=== PATIENT | female | born 1940 | race Caucasian/White ===

== ENCOUNTER 2016-10-22 11:22 | Emergency (ER) | payer OTHER ==
[2016-10-22] MEDS ORDERED: SULFAMETH/TRIMETH DS 800/160 MG TABLET PO STA (13:52)
[2016-10-22] MEDS ORDERED: CEPHALEXIN 250 MG CAPSULE PO STA (13:52)
[2016-10-22] MEDS ORDERED: CEPHALEXIN 250 MG CAPSULE PO ONE (13:57)
[2016-10-22] MEDS ORDERED: SULFAMETH/TRIMETH DS 800/160 MG TABLET PO ONE (13:58)
--- NOTE | 2016-10-22 14:29 | ED Physician Documentation ---
PD HPI LOWER EXT INJURY - Stated complaint Stated Complaint: L LEG LAC - Chief complaint Chief Complaint: Ext Problem - History obtained from History obtained from: Patient - History of Present Illness PD HPI LOW EXT INJURY LOCATION: Left Type of injury: Laceration Where injury occurred: Home Timing - onset: How many days ago (4) Timing - duration: Days (4) Timing - details: Gradual onset Pain level max: 5 Pain level now: 4 Improved by: Rest Worsened by: Moving, Palpating Associated symptoms: Swelling, Discolored (erythematous). No: Weakness, Numbness, Tingling Review of Systems Constitutional: denies: Fever, Chills GI: denies: Nausea, Vomiting : denies: Now EGA Skin: denies: Rash Musculoskeletal: denies: Neck pain, Back pain Neurologic: denies: Focal weakness, Numbness, Headache PD PAST MEDICAL HISTORY - Past Medical History Past Medical History: Yes Cardiovascular: Hypertension GI: GERD : Other - Past Surgical History Past Surgical History: No - Present Medications Home Medications: Ambulatory Orders Medication Instructions Recorded Confirmed Cephalexin [Keflex] 500 mg PO Q6H #28 capsule 10/22/16 Gerd 10/22/16 Hbp 10/22/16 Ibuprofen 600 mg PO Q6HR PRN #20 tablet 10/22/16 Solifenacin Succinate [Vesicare] 10 mg PO DAILY 10/22/16 10/22/16 Sulfamethox/Trimeth 800/160 1 each PO BID #14 tablet 10/22/16 [Bactrim Ds 800/160] - Allergies Allergies/Adverse Reactions: Allergies Allergy/AdvReac Type Severity Reaction Status Date / Time tetracaine AdvReac Nausea Verified 10/22/16 11:32 - Social History Does the pt smoke?: No Smoking Status: Never smoker Does the pt drink ETOH?: No Does the pt have substance abuse?: No - Immunizations Immunizations are current?: No Immunizations: TDAP >10years/unknown - POLST Patient has POLST: No PD ED PE NORMAL - Vitals Vital signs reviewed: Yes - General General: Alert and oriented X 3, No acute distress - Derm Derm: Warm and dry - Extremities Extremities: Other (TTP medial aspect of the L ankle with healing laceartion. 4cm surrounding erythema. no drainage. TTP over medial malleolus. NVI. ) - Neuro Neuro: Alert and oriented X 3 - Psych Psych: Normal mood, Normal affect Results - Vitals Vitals: Vital Signs - 24 hr 10/22/16 10/22/16 11:27 14:37 Temperature 36.5 C 36.4 C L Heart Rate 77 67 Respiratory 16 18 Rate Blood Pressure 140/75 H 138/72 H O2 Saturation 100 99 Oxygen O2 Source Room air - Rads (name of study) L ankle Radiology: Prelim report reviewed, EMP read contemporaneously, See rad report ( Soft tissue swelling without acute fracture. ) Departure - Departure Disposition: Home, Self Care Clinical Impression: Cellulitis Qualifiers: Site of cellulitis: extremity Site of cellulitis of extremity: lower extremity Laterality: left Qualified Code(s): L03.116 - Cellulitis of left lower limb Condition: Good Instructions: ED Infec Skin Cellulitis Follow-Up: your,doctor in 3 days for wound check [Other] Prescriptions: Ibuprofen 600 mg PO Q6HR PRN #20 tablet PRN Reason: pain Sulfamethox/Trimeth 800/160 [Bactrim Ds 800/160] 1 each PO BID #14 tablet Cephalexin [Keflex] 500 mg PO Q6H #28 capsule Comments: Take all antibiotics until gone. Return if you worsen. There are no acute abnormalities on your x-ray today. Discharge Date/Time: 10/22/16 14:37
[2016-10-22] MEDS ORDERED: IBUPROFEN 600 MG TABLET PO STA (14:31)
[2016-10-22 14:38] VITALS: BP 138/72
--- NOTE | 2016-10-22 14:59 | XRAY Preliminary Report ---
Exam: XR Ankle 3 View LT IMPRESSION: Soft tissue swelling without acute fracture. [facility] SITE ID: [id number]
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
== END 2016-10-22 14:37 | disposition home or self-care (01) ==
LOC: ED 11:22
DX: L03.116 Cellulitis of left lower limb (principal); I10 Essential (primary) hypertension
CPT/HCPCS: 73610; 99283; A9270

== ENCOUNTER 2016-11-10 16:27 | Emergency (ER) | payer OTHER ==
[2016-11-10 16:46] VITALS: BP 153/73
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
[2016-11-10] MEDS ORDERED: CEPHALEXIN 250 MG CAPSULE PO STA (17:48)
[2016-11-10] MEDS ORDERED: TETANUS/DIPHTHERIA/PERTUSSIS 0.5 ML SYRINGE IM ONE ×2 (17:48→18:06)
[2016-11-10] MEDS ORDERED: CEPHALEXIN 250 MG CAPSULE PO ONE (18:06)
[2016-11-10] MEDS ORDERED: LIDOCAINE-EPINEPH-TETRACAINE 3 ML SYRINGE TOP STA (18:15)
[2016-11-10] MEDS ORDERED: LIDOCAINE-EPINEPH-TETRACAINE 3 ML SYRINGE TOP ONE (18:22)
== END 2016-11-10 19:03 | disposition home or self-care (01) ==
LOC: ED 16:27
DX: S91.012A Laceration without foreign body, left ankle, initial encounter (principal); L08.9 Local infection of the skin and subcutaneous tissue, unspecified; X58.XXXA Exposure to other specified factors, initial encounter; Z23 Encounter for immunization; I10 Essential (primary) hypertension
CPT/HCPCS: 87070; 87205; 90471; 90715; 99283; A9270

== ENCOUNTER 2016-11-13 14:12 | Emergency (ER) | payer OTHER ==
[2016-11-13 14:27] VITALS: BP 157/77
[2016-11-13] MEDS ORDERED: LIDOCAINE JELLY 2% 5 ML TUBE TOP STA (14:38)
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
[2016-11-13] MEDS ORDERED: LIDOCAINE JELLY 2% 5 ML TUBE TOP ONE (14:42)
--- NOTE | 2016-11-14 08:00 | ED Physician Documentation ---
ED Addendum - Addendum Addendum: 11/14/16 07:59 pt returned as requested for wound check -visiting locally no PMD to see - chart accessed for follow up and educational purposes
== END 2016-11-13 15:09 | disposition home or self-care (01) ==
LOC: ED 14:12
DX: S91.002D Unspecified open wound, left ankle, subsequent encounter (principal); L08.89 Other specified local infections of the skin and subcutaneous tissue; X58.XXXD Exposure to other specified factors, subsequent encounter; I10 Essential (primary) hypertension; K21.9 Gastro-esophageal reflux disease without esophagitis
CPT/HCPCS: 99282; J3490

== ENCOUNTER 2016-11-18 10:00 | Outpatient (CLI) | payer OTHER ==
[2016-11-18 13:15] LABS: BASOPHILS % (AUTO) 0.7 %; EOSINOPHILS # (AUTO) 0.2 10^3/uL (0.0-0.7); EOSINOPHILS % (AUTO) 3.2 %; HCT - HEMATOCRIT 33.1 % (37.0-47.0); HGB - HEMOGLOBIN 11.3 g/dL (12.0-16.0); LYMPHOCYTES % (AUTO) 18.3 %; MEAN CORPUSCULAR HEMOGLOBIN 29.1 pg (27.0-31.0); MEAN CORPUSCULAR HGB CONC 34.1 g/dL (32.0-36.0); MEAN CORPUSCULAR VOLUME 85.4 fL (81.0-99.0); MEAN PLATELET VOLUME 7.5 fL (7.9-10.8); MONOCYTES # (AUTO) 0.3 10^3/uL (0.0-1.0); MONOCYTES % (AUTO) 6.1 %; NEUTROPHILS % (AUTO) 71.7 %; NUCLEATED RED BLOOD CELLS AUTO 0.1 /100WBC; RED BLOOD COUNT 3.88 10^6/uL (4.20-5.40); UNCORRECTED WHITE BLOOD COUNT 5.5 x10^3/uL; WHITE BLOOD COUNT 5.5 x10^3/uL (4.8-10.8)
[2016-11-18 13:40] LABS: BILIRUBIN,TOTAL 0.7 mg/dL (0.2-1.0); CALCIUM 8.9 mg/dL (8.5-10.3); CREATININE 0.7 mg/dL (0.4-1.0); POTASSIUM 3.8 mmol/L (3.5-5.0); TOTAL PROTEIN 6.9 g/dL (6.7-8.2)
== END 2016-11-18 10:01 | disposition home or self-care (01) ==
LOC: LAB.WCP 10:00
PROVIDERS: ATTEND Family Medicine
DX: L97.822 Non-pressure chronic ulcer of other part of left lower leg with fat layer exposed (principal)
CPT/HCPCS: 36415; 80053; 83036; 85025; 87070; 87205